=== PATIENT | male | born 1955 | race Caucasian/White ===

== ENCOUNTER 2016-07-28 06:39 | Outpatient (CLI) | payer BC, MEDICARE | END 2016-07-28 06:40 | disposition home or self-care (01) | LOC: BURLAB 06:39 | PROVIDERS: ATTEND Nurse Practitioner Family | DX: I25.10 Atherosclerotic heart disease of native coronary artery without angina pectoris (principal); Z95.1 Presence of aortocoronary bypass graft | CPT/HCPCS: 36415; 80061 ==

== ENCOUNTER 2016-10-01 06:47 | Outpatient (CLI) | payer BC, MEDICARE ==
[2016-10-01 08:10] LABS: ALT (SGPT) 27 U/L (8-55); AST (SGOT) 26 U/L (5-34); Albumin 4.5 g/dL (3.4-4.8); Alkaline Phosphatase 74 U/L (40-150); Anion Gap 17 mmol/L (10-20); BUN (Urea Nitrogen) 17 mg/dL (8.4-25.7); Bilirubin, Total 0.6 mg/dL (0.2-1.2); Calc. Creatinine Clearance 0 mL/min (70-130); Calcium 8.6 mg/dL (7.8-10.44); Carbon Dioxide 27 mmol/L (23-31); Cardiac Risk 3.9 (Less than 4.5); Chloride 103 mmol/L (98-107); Cholesterol 129 mg/dl (< 200 Desired); Estimated GFR-MDRD 61; Globulin 2.8 g/dL (2.4-3.5); Glucose 102 mg/dL (80-115); HDL Cholesterol 33 mg/dL (>60 Neg Risk); LDL Cholesterol, Calculated 36 mg/dL; Potassium 3.8 mmol/L (3.5-5.1); Protein, Total 7.3 g/dL (5.8-8.1); Sodium 143 mmol/L (136-145); Triglycerides 301 mg/dL (Less than 150)
[2016-10-01 08:29] LABS: Free T4 (Free Thyroxine) 0.87 ng/dL (0.70-1.48); T4 5.6 ug/dL (4.87-11.72); Thyroid Stimulating Hormone 10.3629 uIU/mL (0.35-4.94); Vitamin D, 25 Hydroxy 30.7 ng/ml (> 30.0)
[2016-10-01 17:44] LABS: Phosphorus 5.4 mg/dL (2.3-4.7)
[2016-10-01 18:04] LABS: Creatinine, Urine 146.28 mg/dL (63-166); Microalbumin Urine 1.1 mg/dL (0.5-50.0); Microalbumin/Creat Ratio 7.5 mg/g (Less than 30)
== END 2016-10-01 06:48 | disposition home or self-care (01) ==
LOC: BURLAB 06:47
PROVIDERS: ATTEND Specialist
DX: E78.00 Pure hypercholesterolemia, unspecified (principal); E55.9 Vitamin D deficiency, unspecified; D51.8 Other vitamin B12 deficiency anemias; R53.81 Other malaise; Z79.899 Other long term (current) drug therapy
CPT/HCPCS: 36415; 80053; 80061; 82043; 82306; 82330; 82607; 83970; 84100; 84436; 84439; 84443; 84479

== ENCOUNTER 2016-12-29 08:56 | Outpatient (CLI) | payer BC, MEDICARE ==
[2016-12-29 09:36] LABS: ALT (SGPT) 30 U/L (8-55); AST (SGOT) 26 U/L (5-34); Albumin 4.4 g/dL (3.4-4.8); Alkaline Phosphatase 74 U/L (40-150); Anion Gap 15 mmol/L (10-20); BUN (Urea Nitrogen) 20 mg/dL (8.4-25.7); Bilirubin, Total 0.5 mg/dL (0.2-1.2); Calc. Creatinine Clearance 0 mL/min (70-130); Calcium 8.9 mg/dL (7.8-10.44); Carbon Dioxide 27 mmol/L (23-31); Cardiac Risk 3.3 (Less than 4.5); Chloride 103 mmol/L (98-107); Cholesterol 141 mg/dl (< 200 Desired); Estimated GFR-MDRD 72; Globulin 3.2 g/dL (2.4-3.5); Glucose 135 mg/dL (80-115); HDL Cholesterol 43 mg/dL (>60 Neg Risk); LDL Cholesterol, Calculated 72 mg/dL; Protein, Total 7.6 g/dL (5.8-8.1); Sodium 141 mmol/L (136-145); Triglycerides 128 mg/dL (Less than 150)
[2016-12-29 09:52] LABS: Free T4 (Free Thyroxine) 0.92 ng/dL (0.70-1.48); Thyroid Stimulating Hormone 0.9065 uIU/mL (0.35-4.94)
[2016-12-29 17:53] LABS: Phosphorus 4.7 mg/dL (2.3-4.7)
[2016-12-29 18:15] LABS: Free Thyroxine Index 1.83 (1.4-3.1); T4 6.1 ug/dL (4.87-11.72)
[2017-01-01 06:17] LABS: Ionized Calcium 4.6 mg/dL (4.5-5.6)
== END 2016-12-29 08:57 | disposition home or self-care (01) ==
LOC: BURLAB 08:56
PROVIDERS: ATTEND Internal Medicine
DX: E11.65 Type 2 diabetes mellitus with hyperglycemia (principal); E78.5 Hyperlipidemia, unspecified; E03.9 Hypothyroidism, unspecified; E83.51 Hypocalcemia; E83.39 Other disorders of phosphorus metabolism; R53.81 Other malaise; Z79.899 Other long term (current) drug therapy
CPT/HCPCS: 36415; 80053; 80061; 82330; 83970; 84100; 84436; 84439; 84443; 84479

== ENCOUNTER 2017-06-25 14:21 | Outpatient (CLI) | payer BC ==
--- NOTE | 2017-06-25 17:33 | RAD ---
LEFT ELBOW FOUR VIEWS 06/25/17 Prior trauma to the radial head and lateral condyle of the humerus is suggested. There is also bony s purring of the coronoid process of the ulna which is most likely due to old trauma. A very small join t effusion is suggested. No current fracture was appreciated. IMPRESSION: Small joint effusion and old posttraumatic changes. POS: HOME
--- NOTE | 2017-06-25 17:35 | RAD ---
RIGHT ELBOW FOUR VIEWS 06/25/17 Findings are very similar to those seen in the left elbow. Posttraumatic changes from the past are no afshan, particularly in the radial head and the coronoid process. A small joint effusion is probably pre sent. No acute fracture was seen. IMPRESSION: Old traumatic changes. Minimal joint fluid. POS: HOME
== END 2017-06-25 14:22 | disposition home or self-care (01) ==
LOC: BURRAD 14:21
PROVIDERS: ATTEND Physician Assistant
DX: M25.522 Pain in left elbow (principal); M25.422 Effusion, left elbow

== ENCOUNTER 2017-09-03 09:00 | Emergency (ER) | payer BC, MEDICARE ==
[2017-09-03 09:38] LABS: #Basophils 0.1 thou/uL (0.0-0.2); #Eosinphils 0.6 thou/uL (0.0-0.7); #Lymphocytes 1.6 thou/uL (1.20-3.40); #Monocytes 0.5 thou/uL (0.11-0.59); #Neutrophils 4.9 thou/uL (1.40-6.50); %Basophils 1.6 % (0.0-1.0); %Eosinophils 7.4 % (0.0-10.0); %Lymphocytes 20.3 % (21.0-51.0); %Monocytes 6.8 % (0.0-10.0); %Neutrophils 63.9 % (42.0-75.0); Hemoglobin 10.8 g/dL (14.0-18.0); Mean Corpuscular HGB CONC 32.4 g/dL (32.0-36.0); Mean Corpuscular Volume 86.2 fl (80.0-94.0); Mean Platelet Volume 5.6 fL (7.4-10.4); Platelet Count 376 thou/uL (130-400); RBC Distribution Width 13.3 % (11.5-14.5); Red Blood Cell (RBC) Count 3.86 mill/uL (4.70-6.10); White Blood Cell (WBC) Count 7.6 thou/uL (4.8-10.8)
[2017-09-03] MEDS ORDERED: Amoxicillin/Potassium Clav 875 MG TAB ONE (09:50)
== END 2017-09-03 10:24 | disposition home or self-care (01) ==
LOC: BURERS 09:00
DX: L03.116 Cellulitis of left lower limb (principal); E11.9 Type 2 diabetes mellitus without complications; E03.9 Hypothyroidism, unspecified; E78.5 Hyperlipidemia, unspecified
CPT/HCPCS: 36415; 85025; 99283

== ENCOUNTER 2017-09-15 08:52 | Outpatient (CLI) | payer BC, MEDICARE ==
--- NOTE | 2017-09-16 16:35 | CT ---
CT CHEST NONCONTRAST HIGH RESOLUTION: HISTORY: Dyspnea on exertion. Restrictive lung disease. FINDINGS: Bronchi are of normal caliber. Minimal bibasilar atelectasis. No significant interstitial thickenin g. No cystic lung disease. No pleural effusions or pneumothorax. Heart is enlarged. Motion artifact is significant. High-resolution technique does not well evaluate the soft tissues or evaluate for pulmonary nodules. No dominant nodule or gross mediastinal adenopathy are apparent. There is calcification in the hillary rial structures including the coronary arteries. IMPRESSION: 1. No CT evidence of interstitial lung disease. 2. Atherosclerosis. POS: [facility]
== END 2017-09-15 08:53 | disposition home or self-care (01) ==
LOC: BURCT 08:52
PROVIDERS: ATTEND Internal Medicine Sleep Medicine
DX: J98.4 Other disorders of lung (principal); I70.90 Unspecified atherosclerosis
CPT/HCPCS: 71250

== ENCOUNTER 2021-01-13 15:15 | Emergency (ER) | payer MEDICARE, OTHER | END 2021-01-13 16:03 | disposition home or self-care (01) | LOC: BURERS 15:15 | DX: S82.402A Unspecified fracture of shaft of left fibula, initial encounter for closed fracture (principal); E11.9 Type 2 diabetes mellitus without complications; E03.9 Hypothyroidism, unspecified; E78.5 Hyperlipidemia, unspecified; E78.00 Pure hypercholesterolemia, unspecified; X58.XXXA Exposure to other specified factors, initial encounter | CPT/HCPCS: 99283 ==

== ENCOUNTER 2025-04-13 22:11 | Emergency (ER) | payer MEDICARE, OTHER | END 2025-04-13 22:50 | disposition home or self-care (01) | LOC: BURERS 22:11 | DX: I83.891 Varicose veins of right lower extremity with other complications (principal); E11.9 Type 2 diabetes mellitus without complications ==